=== PATIENT | female | born 1950 | race Hispanic/Latino ===

== ENCOUNTER 2017-12-20 08:37 | Outpatient (RCR) | payer MEDICARE, OTHER | END 2018-01-03 | LOC: M ST 08:37 | DX: J38.3 Other diseases of vocal cords (principal) | CPT/HCPCS: 92507 ==

== ENCOUNTER → 2017-12-27 | Outpatient (CLI) | payer MEDICARE, OTHER ==
[~2017-12-27] MED LIST: E-Z-GAS II EFFERVESCENT PACKET (SODIUM BICARB./CITRIC ACID/SIMETHICONE) As Ordered; E-Z-HD 98% w/w 340GM SUSP BTL As Ordered; E-Z-PAQUE 96% w/w SUSP 176GM BTL As Ordered
== END ==
LOC: M RAD 09:45
DX: R13.10 Dysphagia, unspecified (principal); M25.78 Osteophyte, vertebrae; K21.9 Gastro-esophageal reflux disease without esophagitis
CPT/HCPCS: 74220

== ENCOUNTER 2018-01-05 14:44 | Outpatient (RCR) | payer MEDICARE, OTHER | END 2018-02-03 | LOC: M ST 14:44 | DX: J38.3 Other diseases of vocal cords (principal) | CPT/HCPCS: 92507 ==

== ENCOUNTER 2018-02-10 09:45 | Outpatient (RCR) | payer MEDICARE, OTHER | END 2018-03-05 | LOC: M ST 09:45 | DX: Z51.89 Encounter for other specified aftercare (principal); R49.0 Dysphonia | CPT/HCPCS: 92507 ==

== ENCOUNTER 2018-06-09 07:38 | Day surgery (SDC) | payer MEDICARE, OTHER ==
[2018-06-08] MEDS: DUOVISC (0.50ML VISCOAT/0.55ML PROVISC) OPHTH KIT As Ordered (09:48)
[~2018-06-09 07:38] MED LIST changes: -E-Z-GAS II EFFERVESCENT PACKET (SODIUM BICARB./CITRIC ACID/SIMETHICONE) As Ordered; -E-Z-HD 98% w/w 340GM SUSP BTL As Ordered; -E-Z-PAQUE 96% w/w SUSP 176GM BTL As Ordered; +MIDAZOLAM INJ 2 MG/2 ML VIAL (J2250) As Ordered; +fentaNYL 100 MCG/2 ML INJECTION (J3010) As Ordered
[2018-06-09] MEDS: TROPICAMIDE 1% OPHTH SOLN 2ML OD (07:57)
[2018-06-09] MEDS: OFLOXACIN 0.3 % (OCUFLOX) OPTH SOL 5ML OD (07:57)
[2018-06-09] MEDS: PHENYLEPHRINE 2.5% OPHTH SOL 2ML OD (07:57)
[2018-06-09] MEDS: PROPARACAINE 0.5% OPHTH SOL 15ML OD (07:57)
[2018-06-09] MEDS: POVIDONE-IODINE 5% OPHTH PREP SOL 30ML As Ordered (09:13)
[2018-06-09] MEDS: BALANCED SALT IRRIGATION SOLUTION 500ML BAG (FOR OR EYE MACHINE) As Ordered (09:15)
[2018-06-09] MEDS: CEFUROXIME 1MG/0.1ML INTRACAMERAL INJ As Ordered (09:16)
[2018-06-09] MEDS: LIDOCAINE 0.75%/EPINEPHRINE 0.025% IN BSS 1ML SYR INTRACAMERAL (OR ONLY) As Ordered (09:16)
[2018-06-09] MEDS: ACETYLCHOLINE OPHTH SOLN 1% 2ML (MIOCHOL-E) As Ordered (09:48)
== END 2018-06-09 10:30 | disposition home or self-care (01) ==
LOC: M SDC 07:38
DX: H25.11 Age-related nuclear cataract, right eye (principal); H40.1110 Primary open-angle glaucoma, right eye, stage unspecified; J45.909 Unspecified asthma, uncomplicated; M12.9 Arthropathy, unspecified; Z91.09 Other allergy status, other than to drugs and biological substances; Z90.710 Acquired absence of both cervix and uterus; Z79.899 Other long term (current) drug therapy
CPT/HCPCS: 66984

== ENCOUNTER 2018-07-14 05:43 | Day surgery (SDC) | payer MEDICARE, OTHER ==
[2018-07-14] MEDS: TROPICAMIDE 1% OPHTH SOLN 2ML OS (06:30)
[2018-07-14] MEDS: OFLOXACIN 0.3 % (OCUFLOX) OPTH SOL 5ML OS (06:30)
[2018-07-14] MEDS: PHENYLEPHRINE 2.5% OPHTH SOL 2ML OS (06:30)
[2018-07-14] MEDS: PROPARACAINE 0.5% OPHTH SOL 15ML OS (06:30)
[2018-07-14] MEDS ORDERED: MIDAZOLAM INJ 2 MG/2 ML VIAL (J2250) As Ordered (07:11)
[2018-07-14] MEDS ORDERED: fentaNYL 100 MCG/2 ML INJECTION (J3010) As Ordered (07:31)
[2018-07-14] MEDS: POVIDONE-IODINE 5% OPHTH PREP SOL 30ML As Ordered (07:35)
[2018-07-14] MEDS: BALANCED SALT IRRIGATION SOLUTION 500ML BAG (FOR OR EYE MACHINE) As Ordered (07:35)
[2018-07-14] MEDS: DUOVISC (0.50ML VISCOAT/0.55ML PROVISC) OPHTH KIT As Ordered (07:36)
[2018-07-14] MEDS: CEFUROXIME 1MG/0.1ML INTRACAMERAL INJ As Ordered (07:36)
[2018-07-14] MEDS: LIDOCAINE 0.75%/EPINEPHRINE 0.025% IN BSS 1ML SYR INTRACAMERAL (OR ONLY) As Ordered (07:36)
[2018-07-14] MEDS ORDERED: ONDANSETRON 4MG/2ML VIAL (J2405) IV (08:30)
[2018-07-14] MEDS ORDERED: ACETAMINOPHEN TAB 650MG DOSE (2X325MG) PO (08:30)
== END 2018-07-14 08:51 | disposition home or self-care (01) ==
LOC: M SDC 05:43
DX: H25.12 Age-related nuclear cataract, left eye (principal); H40.1124 Primary open-angle glaucoma, left eye, indeterminate stage; J45.909 Unspecified asthma, uncomplicated; Z91.09 Other allergy status, other than to drugs and biological substances; Z79.899 Other long term (current) drug therapy; Z78.0 Asymptomatic menopausal state
CPT/HCPCS: 66984

== ENCOUNTER → 2018-11-23 | Outpatient (REF) | payer MEDICARE, OTHER ==
[~2018-11-23] MED LIST changes: +BRIM1OPD OU; +FLUT11IN INH; +HYDR25TAB PO; +MICA5TAB PO; -MIDAZOLAM INJ 2 MG/2 ML VIAL (J2250) As Ordered; +SIMB1SUS OU; +TIMO0.5S39 OU; -fentaNYL 100 MCG/2 ML INJECTION (J3010) As Ordered
== END ==
LOC: M LAB REF 13:19
PROVIDERS: ATTEND Physician Assistant Medical
DX: R05 Cough (principal)